=== PATIENT | male | born 1930 | race Caucasian/White ===

== ENCOUNTER 2016-07-16 10:36 | Observation (INO) | payer OTHER, BC ==
--- NOTE | 2016-07-16 12:38 | PDOC ---
History of Present Illness - General Chief Complaint: Pain Stated Complaint: NECK PAIN Time Seen by Provider: 07/16/16 11:54 History Source: Patient Exam Limitations: No Limitations - History of Present Illness Initial Comments: 07/16/16 12:38 CHIEF COMPLAINT: Headache HISTORY OF PRESENT ILLNESS: This is an 85 year old male with a history of Afib on Coumadin, HTN, and BPH who presented to the ED today complaining of headache. He reports that Sunday while sitting and reading at around noon, he experienced sudden, severe pain in the back of his head and neck ("like being hit in the head with a baseball bat"). He had dizziness at that time. His dizziness has since resolved, but the pain has persisted despite taking Excedrin. He denies fevers/chills, nausea/vomiting, change in speech, difficulty walking, numbness/weakness of the extremities, or any other symptoms. V/s on arrival are notable for P 92 and BP 145/93. PCP is Dr. Rankin ([place]) REVIEW OF SYSTEMS: GENERAL/CONSTITUTIONAL: No fever or chills. No weakness. No weight change. HEAD, EYES, EARS, NOSE AND THROAT: No change in vision. No ear pain or discharge. No sore throat. CARDIOVASCULAR: No chest pain or palpitations. RESPIRATORY: No cough, wheezing, or shortness of breath. GASTROINTESTINAL: No nausea, vomiting, diarrhea or constipation. GENITOURINARY: No dysuria, frequency, or change in urination. MUSCULOSKELETAL: Neck pain, worse with turning head to left. SKIN: No rash or easy bruising. NEUROLOGIC: See HPI. PSYCHIATRIC: No depression or anxiety. ENDOCRINE: No increased thirst. No abnormal weight change. HEMATOLOGIC/LYMPHATIC: No anemia, easy bleeding, or history of blood clots. ALLERGIC/IMMUNOLOGIC: No hives or skin allergy. No latex allergy. PHYSICAL EXAM: GENERAL: The patient is awake, alert, and fully oriented, in no acute distress. HEAD: Normal with no signs of trauma. ENT: Pupils equal, round and reactive to light, extraocular movements intact, sclera anicteric, conjunctiva clear. Neck supple. LUNGS: Clear to auscultation bilaterally. Normal excursion. No respiratory distress or use of accessory muscles. CV: Irregular rhythm, S1/S2, no MRG. Cap refill < 2 sec. ABDOMEN: Soft, non-distended, non-tender. EXTREMITIES: Normal range of motion, no edema. NEUROLOGICAL: Normal speech, normal gait. CN II-XII grossly intact. Neck pain, reproducible with turning head to left. No midline vertebral tenderness. PSYCH: Normal mood, normal affect. SKIN: Warm, dry, normal turgor, no rashes or lesions noted. NIH Stroke Scale - Last Known Well Date/Time & Onset Date Last Known Well: 07/14/16 Time Last Known Well: 12:00 - Initial Evaluation Level of consciousness: Alert Ask patient the month and their age: Answers both correctly Ask patient to open & close eyes; make fist and let go: Obeys both correctly Best gaze (horizontal eye movement): Normal Visual field testing: No visual field loss Facial paresis (Show teeth/raise eyebrows/close eyes tight): Normal symmetrical movement Motor Function: Left Arm: Normal Motor Function: Right Arm: Normal (extends arm 90 (or 45) degrees for 10 seconds without drift Motor Function: Left Leg: Normal (extends leg 30 degrees for 5 seconds without drift) Motor Function: Right Leg: Normal (extends leg 30 degrees for 5 seconds without drift) Limb Ataxia: No ataxia Sensory(Use pinprick test arms,legs,trunk,face/side to side): Normal Best language (Describe picture, name items, read sentences): No Aphasia Dysarthria (read several words): Normal articulation Extinction and Inattention: No abnormality - Total Score NIH Stroke Scale Score: 0 Past History - Past Medical History Allergies/Adverse Reactions: Allergies Allergy/AdvReac Type Severity Reaction Status Date / Time No Known Allergies Allergy Verified 07/16/16 10:44 Home Medications: Ambulatory Orders Metoprolol Succinate [Toprol XL -] 200 mg PO DAILY 09/01/15 Allopurinol 300 mg PO DAILY 12/03/15 Warfarin Na [Coumadin -] 4.5 mg PO DAILY@1800 12/03/15 Cardiac Disorders: Yes (A-FIB) HTN: Yes - Surgical History Orthopedic Surgery: Yes (RIGHT KNEE) - Psycho/Social/Smoking Cessation Hx Anxiety: No Suicidal Ideation: No Smoking History: Never smoked Have you smoked in the past 12 months: Yes Number of Cigarettes Smoked Daily: 3 Cigars Per Day: 3 Information on smoking cessation initiated: No 'Breaking Loose' booklet given: 12/03/15 Hx Alcohol Use: No Drug/Substance Use Hx: No Substance Use Type: None Hx Substance Use Treatment: No *Physical Exam - Vital Signs Last Vital Signs Temp Pulse Resp BP Pulse Ox 98 F 92 H 18 145/93 98 07/16/16 10:38 07/16/16 10:38 07/16/16 10:38 07/16/16 10:38 07/16/16 10:38 Heart Score/ECG Review - ECG Intrepretation Comment:: 07/16/16 13:50 Atrial fibrillation with rapid ventricular response at 116. Right bundle branch block. ED Treatment Course - LABORATORY CBC & Chemistry Diagram: 07/16/16 12:53 07/16/16 12:53 - RADIOLOGY Radiology Studies Ordered: Category Date Time Status HEAD CT WITHOUT CONTRAST [CT] Stat CT Scan 07/16/16 12:37 Ordered Medical Decision Making - Medical Decision Making 07/16/16 13:36 A/P: 85 year old male with posterior headache and neck pain. 1. EKG 2. Cardiac labs + INR 3. Head CT to screen for SAH 4. Reglan/Benadryl for symptomatic relief 5. Patient took his Toprol XL today; will give Metoprolol 5mg IVP for for rapid ventricular rate (116 on EKG) 6. Re-evaluate 07/16/16 16:28 CTH shows no acute intracranial process. LP is deferred because of near-therapeutic INR (1.95). Neurology is consulted. CTA head and neck were obtained and results are pending. Patient still has headache after Reglan/Benadryl; morphine given. 07/16/16 17:42 CTA head and neck are negative for oclussin, stenosis, dissection or aneurysm per Imaging service station cashier report. 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 Will give trial of Valium po. *DC/Admit/Observation/Transfer Diagnosis at time of Disposition: Occipital headache, Neck pain - Discharge Dispostion Admit: Yes - Referrals Referrals: Aliyah Rankin [Primary Care Provider] -
[2016-07-16] MEDS ORDERED: METOCLOPRAMIDE HCL INJECTION 10 MG/2 ML VIAL IVPB ONE (12:57)
[2016-07-16 13:02] LABS: BASOPHIL 1.3 % (0-2.0); EOSINOPHIL 1.5 % (0-4.5); MCHC 33.6 g/dl (32.0-35.9); MEAN CELL VOLUME 89.3 fl (80-96); MEAN PLT VOLUME 8.1 fl (7.5-11.1); NEUTROPHILS 71.1 % (42.8-82.8); PLATELET COUNT 210 K/MM3 (134-434); RDW 13.9 % (11.9-15.9); WHITE BLOOD COUNT 11.7 K/mm3 (4.0-10.0)
[2016-07-16] MEDS ORDERED: METOCLOPRAMIDE HCL INJECTION 10 MG/2 ML VIAL ONE (13:11)
[2016-07-16 13:14] LABS: INR 1.95 (0.82-1.09); PROTHROMBIN TIME (PATIENT) 21.8 SEC (9.98-11.88)
[2016-07-16 13:40] LABS: ALBUMIN 4.2 g/dl (3.4-5.0); ALK PHOS 93 U/L (45-117); ANION GAP 9 (8-16); BILIRUBIN,TOTAL 1.3 mg/dL (0.2-1.0); CALCIUM 8.9 mg/dL (8.5-10.1); CO2 29 mmol/L (21-32); CREATININE 1.1 mg/dL (0.7-1.3); GLUCOSE,RANDOM 89 mg/dL (74-106); SGOT/AST 20 U/L (15-37); SGPT/ALT 29 U/L (12-78); TOT PROT 7.4 g/dl (6.4-8.2)
[2016-07-16] MEDS ORDERED: morphine CARPU-JECT 2 MG/1 ML DISP.SYRIN IVPUSH ONE (13:58)
[2016-07-16] MEDS ORDERED: morphine CARPU-JECT 2 MG/1 ML DISP.SYRIN ONE (14:10)
--- NOTE | 2016-07-16 14:30 | PDOC ---
[id number] 98 07/16/16 10:38 07/16/16 10:38 07/16/16 10:38 07/16/16 10:38 07/16/16 10:38 Heart Score/ECG Review - ECG Impressions Comment:: 07/16/16 14:43 Twelve-lead EKG was performed and reviewed by me. Atrial fibrillation Rate of 116 Right bundle-branch block ED Treatment Course - LABORATORY CBC & Chemistry Diagram: 07/17/16 06:20 07/17/16 06:20 - ADDITIONAL ORDERS Additional order review: Laboratory Results 07/16/16 07/16/16 07/16/16 13:09 12:53 12:53 INR 1.95 H Sodium 138 Potassium 4.0 Chloride 100 Carbon Dioxide 29 Anion Gap 9 BUN 17 Creatinine 1.1 Creat Clearance w eGFR > 60 Random Glucose 89 D Calcium 8.9 Total Bilirubin 1.3 H D AST 20 D ALT 29 D Alkaline Phosphatase 93 Total Protein 7.4 Albumin 4.2 Blood Type O POSITIVE Antibody Screen Negative 07/16/16 12:53 RBC 5.49 MCV 89.3 MCHC 33.6 RDW 13.9 MPV 8.1 Neutrophils % 71.1 Lymphocytes % 16.5 Monocytes % 9.6 Eosinophils % 1.5 Basophils % 1.3 - Medications Given in the ED: ED Medications Discontinued Medications Generic Name Dose Route Start Last Admin Trade Name Earlq PRN Reason Stop Dose Admin Diphenhydramine HCl 12.5 mg 07/16/16 12:57 07/16/16 13:15 Benadryl Injection - IVPUSH 07/16/16 12:58 12.5 mg ONCE ONE Administration Metoclopramide HCl 10 mg 07/16/16 12:57 07/16/16 13:16 Reglan Injection - IVPB 07/16/16 12:58 10 mg ONCE ONE Administration Morphine Sulfate 2 mg 07/16/16 13:58 07/16/16 14:16 Morphine Injection - IVPUSH 07/16/16 13:59 2 mg ONCE ONE Administration Medical Decision Making - Medical Decision Making 07/16/16 14:20 85-year-old gentleman history of A. fib on Coumadin, hypertension, BPH presents with complaint of neck pain and headache, patient endorses a headache while he was reading on Sunday L is moderate however to worsen significantly when he was sleeping last night, endorsed pain with any movement of his neck. The patient endorsed at his pain originally began behind his left ear, but has eating to his other side. Patient denies any focal neurology complaints, nausea or vomiting. He is well-appearing, in no distress however he is visibly holding his neck straight. The patient has a negative Kernig's and Brudzinski. Concern for possible subarachnoid hemorrhage versus ICH as pt is on coumadin, i have a concern about LP due to iatragenic spinal epidral hematoma will obtain CTA to r/o anerysm *DC/Admit/Observation/Transfer Diagnosis at time of Disposition: Occipital headache, Neck pain - Discharge Dispostion Disposition: HOME Condition at time of disposition: Stable - Prescriptions
[2016-07-16] MEDS ORDERED: METOPROLOL SUCCINATE 200 MG TAB.SR.24H PO SCH (17:00)
[2016-07-16] MEDS ORDERED: METOPROLOL TARTRATE 5 MG/5 ML VIAL IVPUSH ONE (17:15)
--- NOTE | 2016-07-16 17:15 | HP ---
PCP: Aliyah Rankin CHIEF COMPLAINT: Neck pain HISTORY OF PRESENT ILLNESS: This is an 85-year-old man who comes to the ER today complaining of pain in the back of his neck. He points to the mid posterior part of his neck. The pain radiates up to the occipital area. It is worse when he turns his head to the left side and when he lies down. He has no fever, chills, photophobia, visual changes, slurred speech, facial weakness, nausea, change in mental status. The pain started suddenly on Friday 07/14 while he was sitting and reading. He says it felt as if someone had hit him in the back of his neck with a baseball bat. He initially had some mild dizziness but it has resolved. He has been taking Excedrin without relief. PAST MEDICAL HISTORY Hypertension Atrial fibrillation BPH Gout PAST SURGICAL HISTORY Right knee surgery Allergies No Known Allergies Allergy (Verified 07/16/16 10:44) HOME MEDICATIONS 3 Medication Instructions Recorded Metoprolol Succinate [Toprol XL -] 200 mg PO DAILY 09/01/15 Allopurinol 300 mg PO DAILY 12/03/15 Warfarin Na [Coumadin -] 4.5 mg PO DAILY@1800 12/03/15 Social History: Smoking: Smokes cigars Alcohol: Drinks Klood on Sunday Drugs: None Recent Travel: No Family History: Non-contributory REVIEW OF SYSTEMS CONSTITUTIONAL: Absent: fever, chills, diaphoresis, generalized weakness, malaise, loss of appetite, weight change HEENT: Absent: rhinorrhea, nasal congestion, throat pain, throat swelling, difficulty swallowing, mouth swelling, ear pain, eye pain, visual changes CARDIOVASCULAR: Absent: chest pain, syncope, palpitations, lightheadedness, peripheral edema RESPIRATORY: Absent: cough, shortness of breath, dyspnea with exertion, orthopnea, wheezing, stridor, hemoptysis GASTROINTESTINAL: Absent: abdominal pain, abdominal distension, nausea, vomiting , diarrhea, constipation, melena, hematochezia GENITOURINARY: Absent: dysuria, frequency, urgency, hesitancy, hematuria, flank pain MUSCULOSKELETAL: Present: neck pain. Absent: myalgia, arthralgia, joint swelling, back pain SKIN: Absent: rash, itching, pallor HEMATOLOGIC/IMMUNOLOGIC: Absent: easy bleeding, easy bruising, lymphadenopathy, frequent infections ENDOCRINE: Absent: unexplained weight gain, unexplained weight loss, heat intolerance, cold intolerance NEUROLOGIC: Absent: headache, focal weakness, paresthesias, dizziness, unsteady gait, seizure, mental status changes, bladder or bowel incontinence PSYCHIATRIC: Absent: anxiety, depression, suicidal or homicidal ideation, hallucinations. PHYSICAL EXAMINATION Vital Signs Period Temp Pulse Resp BP Sys/Alvarenga Pulse Ox Last 24 Hr 98 F 92 18 145/93 98 GENERAL: Awake, alert, and fully oriented, in no acute distress. HEAD: Normal with no signs of trauma. EYES: Pupils equal, round and reactive to light, extraocular movements intact, sclerae anicteric, conjunctivae clear. EARS, NOSE, THROAT: Ears normal, nares patent, oropharynx clear without exudates. Moist mucous membranes. NECK: Decreased rotation, supple without lymphadenopathy, JVD, or masses. LUNGS: Breath sounds equal, clear to auscultation bilaterally. No wheezes, and no crackles. No accessory muscle use. HEART: Irregularly irregular without murmur, rub or gallop. ABDOMEN: Soft, nontender, not distended, normoactive bowel sounds, no guarding, no rebound, no masses. No hepatomegaly or splenomegaly. MUSCULOSKELETAL: Normal range of motion at all joints. No bony deformities or tenderness. No CVA tenderness. UPPER EXTREMITIES: 2+ pulses, warm, well-perfused. No cyanosis. No clubbing. Cap refill <2 seconds. No peripheral edema. LOWER EXTREMITIES: 2+ pulses, warm, well-perfused. No calf tenderness. No peripheral edema. NEUROLOGICAL: Cranial nerves II-XII intact. Normal speech. Normal gait. PSYCHIATRIC: Cooperative. Good eye contact. Appropriate mood and affect. SKIN: Warm, dry, normal turgor, no rashes or lesions noted. Laboratory Results - last 24 hr 07/16/16 07/16/16 07/16/16 12:53 12:53 12:53 WBC 11.7 H RBC 5.49 Hgb 16.5 D Hct 49.0 MCV 89.3 MCHC 33.6 RDW 13.9 Plt Count 210 MPV 8.1 Neutrophils % 71.1 Lymphocytes % 16.5 Monocytes % 9.6 Eosinophils % 1.5 Basophils % 1.3 INR 1.95 H Sodium 138 Potassium 4.0 Chloride 100 Carbon Dioxide 29 Anion Gap 9 BUN 17 Creatinine 1.1 Creat Clearance w eGFR > 60 Random Glucose 89 D Calcium 8.9 Total Bilirubin 1.3 H D AST 20 D ALT 29 D Alkaline Phosphatase 93 Total Protein 7.4 Albumin 4.2 Blood Type Antibody Screen 07/16/16 13:09 WBC RBC Hgb Hct MCV MCHC RDW Plt Count MPV Neutrophils % Lymphocytes % Monocytes % Eosinophils % Basophils % INR Sodium Potassium Chloride Carbon Dioxide Anion Gap BUN Creatinine Creat Clearance w eGFR Random Glucose Calcium Total Bilirubin AST ALT Alkaline Phosphatase Total Protein Albumin Blood Type O POSITIVE Antibody Screen Negative Head CT: No hemorrhage, mass, infarct. Mild diffuse cerebral atrophy with sulcal widening and ventricular dilatation. Periventricular white matter ischemic changes. EKG: Atrial fibrillation, ventricular response 116, RBBB. ASSESSMENT/PLAN: This is an 85-year-old man with a history of HTN, afib, BPH and gout who presented to the ER with pain in the back of his neck x 2 days. He has decreased ROM of his neck. WBC is 11.7. He is afebrile. Head CT shows atrophy and chronic periventricular disease. He is being placed in observation for further evaluation and management of an emergent condition. 1. Neck pain - Likely musculoskeletal - Flexeril as needed - CTA of neck and brain pending 2. Permanent atrial fibrillation - Continue Toprol XL, Coumadin 3. Hypertension - Continue Toprol XL 4. BPH 5. History of gout - Continue Allopurinol Visit type - Emergency Visit Emergency Visit: Yes Care time: The patient presented to the Emergency Department on the above date and was hospitalized for further evaluation of their emergent condition. - New Patient This patient is new to me today: Yes Date on this admission: 07/16/16 - Critical Care Critical Care patient: No
[2016-07-16] MEDS ORDERED: ONDANSETRON 4 MG/2 ML VIAL IVPB PRN (17:23)
[2016-07-16] MEDS ORDERED: diazePAM 5 MG TABLET PO ONE (17:43)
[2016-07-16] MEDS ORDERED: METOPROLOL TARTRATE 5 MG/5 ML VIAL ONE (17:55)
[2016-07-16] MEDS ORDERED: diazePAM 5 MG TABLET ONE (17:55)
[2016-07-16] MEDS: WARFARIN NA 3 MG TABLET PO SCH (19:06)
[2016-07-16 20:26] VITALS: BMI 26.2
[2016-07-16] MEDS: ACETAMINOPHEN 325 MG TABLET (FP) PO PRN (20:31)
[2016-07-16] MEDS: CYCLOBENZAPRINE HCL 10 MG TABLET (FP) PO PRN (22:15)
--- NOTE | 2016-07-16 23:19 | EKG ---
Test Reason : Blood Pressure : / mmHG Vent. Rate : 116 BPM Atrial Rate : 117 BPM P-R Int : 000 ms QRS Dur : 142 ms QT Int : 324 ms P-R-T Axes : 000 105 -03 degrees QTc Int : 450 ms ATRIAL FIBRILLATION WITH RAPID VENTRICULAR RESPONSE RIGHT BUNDLE BRANCH BLOCK ABNORMAL ECG WHEN COMPARED WITH ECG OF 03-DEC-2015 11:38, NO SIGNIFICANT CHANGE WAS FOUND Confirmed by FELI BARRERA MD ([id number]) on 07/16/2016 11:18:52 PM Referred By: Confirmed By:FELI BARRERA MD
[2016-07-17 07:37] LABS: BASOPHIL 0.4 % (0-2.0); EOSINOPHIL 3.2 % (0-4.5); MCH 30.8 pg (25.7-33.7); MCHC 34.6 g/dl (32.0-35.9); MEAN PLT VOLUME 8.3 fl (7.5-11.1); PLATELET COUNT 180 K/MM3 (134-434); RDW 13.7 % (11.9-15.9); WHITE BLOOD COUNT 7.8 K/mm3 (4.0-10.0)
[2016-07-17 08:13] LABS: INR 1.92 (0.82-1.09); PROTHROMBIN TIME (PATIENT) 21.4 SEC (9.98-11.88)
[2016-07-17 08:28] LABS: CALCIUM 8.5 mg/dL (8.5-10.1)
[2016-07-17] MEDS ORDERED: METOPROLOL SUCCINATE 200 MG TAB.SR.24H PO SCH (10:00)
[2016-07-17] MEDS ORDERED: PT OWN MED DRAWER 7, Y5N ONE (10:16)
[2016-07-17] MEDS ORDERED: METOPROLOL SUCCINATE 100 MG TAB.SR.24H (FP) PO ONE (10:18)
[2016-07-17] MEDS: ALLOPURINOL 300 MG TABLET (FP) PO SCH (10:27)
[2016-07-17] MEDS: CYCLOBENZAPRINE HCL 10 MG TABLET (FP) PO PRN ×2 (10:33→17:34)
--- NOTE | 2016-07-17 10:58 | PN ---
Physical Exam: SUBJECTIVE: Patient seen and examined. He feels some pain starting now, neck pain improved from admission, still having difficulty with rotation/flexion and extension. OBJECTIVE: Vital Signs Period Temp Pulse Resp BP Sys/Alvarenga Pulse Ox Last 24 Hr 97.4 F-98.0 F 76-106 18-20 114-183/48-108 97-100 PE Neuro: alert, awake, cn 2-12intact HEENT: neck stiffness R>L, pain at rest and with turning, originates on right and refers to left, - brudzinski sign, 15 degrees flexion 20 degrees extension Pulm: CTAB CV: s1 s2 irregular rhythm no mrg Abd: s nt nd + bs Ext: warm, dry turgor, no edema Laboratory Results - last 24 hr 07/17/16 07/17/16 07/17/16 06:20 06:20 06:20 WBC 7.8 D RBC 4.55 Hgb 14.0 D Hct 40.5 D MCV 89.0 MCHC 34.6 RDW 13.7 Plt Count 180 MPV 8.3 Neutrophils % 62.0 Lymphocytes % 24.1 D Monocytes % 10.3 H Eosinophils % 3.2 D Basophils % 0.4 INR 1.92 H Sodium 139 Potassium 3.9 Chloride 103 Carbon Dioxide 26 Anion Gap 10 BUN 16 Creatinine 1.0 Random Glucose 82 Calcium 8.5 Active Medications Generic Name Dose Route Start Last Admin Trade Name Freq PRN Reason Stop Dose Admin Acetaminophen 650 mg 07/16/16 17:16 07/16/16 20:31 Tylenol - PO 650 mg Q4H PRN Administration FEVER OR PAIN Allopurinol 300 mg 07/17/16 10:00 07/17/16 10:27 Zyloprim - PO Not Given DAILY KATHY Cyclobenzaprine HCl 5 mg 07/16/16 17:27 07/17/16 10:33 Flexeril - PO 5 mg TID PRN Administration MUSCLE SPASMS Metoprolol Succinate 200 mg 07/17/16 10:00 07/17/16 10:27 Toprol Xl - PO 200 mg DAILY KATHY Administration Ondansetron HCl 4 mg 07/16/16 17:23 Zofran Injection IVPB Q4H PRN NAUSEA Warfarin Sodium 4.5 mg 07/16/16 18:00 07/16/16 19:06 Coumadin - PO 4.5 mg DAILY@1800 KATHY Administration Imaging: Head CT: No hemorrhage, mass, infarct. Mild diffuse cerebral atrophy with sulcal widening and ventricular dilatation. Periventricular white matter ischemic changes. Assessment: 85 year old male with pmhx of HTN, afib, BPH and gout admitted with posterior neck pain x 2 days with decreased ROM. Plan: 1. Neck pain - ?possible musculoskeletal vs nerve impingement - Flexeril as needed - CTA of neck and brain done, report pending - Neuro following awaiting input 2. Permanent atrial fibrillation - Continue Toprol XL - Continue Coumadin 4.5mg HS - Daily INR 3. Hypertension - Continue Toprol XL 4. History of gout - Continue Allopurinol Visit type - Emergency Visit Emergency Visit: Yes ED Registration Date: 07/16/16 Care time: The patient presented to the Emergency Department on the above date and was hospitalized for further evaluation of their emergent condition. - New Patient This patient is new to me today: Yes Date on this admission: 07/17/16 - Critical Care Critical Care patient: No
--- NOTE | 2016-07-17 12:34 | CONSULT ---
Consult Consult Specialty:: Neurology Reason for Consultation:: Neck pain - History of Present Illness History of Present Illness: 85-year-old man with history of afib and hypertension, presents to hospital with complaints of neck pain. He describes the pain as posterior, worse when he turns his head to the left side and when he lies down. The patient was seen in ED and denied fever, chills, photophobia, visual changes, slurred speech, facial weakness, nausea, change in mental status. He underwent CT head which showed no significant acute pathology. CTA head and neck was also complete with results pending at this time. This AM patient reports mild improvement in symptoms but continues to experience neck pain - History Source History Provided By: Patient - Past Medical History Cardio/Vascular: Yes: AFIB, HTN Renal/: Yes: BPH. No: Renal Failure, Renal Inusuff, Cancer, Hematuria, Hemodialysis, Neurogenic Bladder, Renal Calculi, UTI, Other - Alcohol/Substance Use Hx Alcohol Use: No - Smoking History Smoking history: Never smoked Have you smoked in the past 12 months: Yes Aproximately how many cigarettes per day: 3 Home Medications - Allergies Allergies/Adverse Reactions: Allergies Allergy/AdvReac Type Severity Reaction Status Date / Time No Known Allergies Allergy Verified 07/16/16 10:44 - Home Medications Home Medications: Ambulatory Orders Metoprolol Succinate [Toprol XL -] 200 mg PO DAILY 09/01/15 Allopurinol 300 mg PO DAILY 12/03/15 Warfarin Na [Coumadin -] 4.5 mg PO DAILY@1800 12/03/15 Review of Systems - Review of Systems Constitutional: reports: No Symptoms Eyes: reports: No Symptoms HENT: reports: No Symptoms Neck: reports: Stiffness Cardiovascular: reports: No Symptoms Respiratory: reports: No Symptoms Gastrointestinal: reports: No Symptoms Genitourinary: reports: No Symptoms Musculoskeletal: reports: Back Pain Neurological: reports: No Symptoms Physical Exam Vital Signs: Vital Signs Temperature 98.1 F 07/17/16 10:00 Pulse Rate 77 07/17/16 10:00 Respiratory Rate 20 07/17/16 10:00 Blood Pressure 106/61 07/17/16 10:00 O2 Sat by Pulse Oximetry (%) 97 07/16/16 20:10 Constitutional: Yes: Well Nourished Eyes: Yes: WNL HENT: Yes: Atraumatic, Normocephalic Neck: Yes: Other (complains of neck pain) Respiratory: Yes: Regular Extremities: Yes: WNL Neurological: Yes: Alert, Oriented, Cran Nerves II-XII Intact ...Motor Strength: WNL Labs: CBC, BMP 07/17/16 06:20 07/17/16 06:20 Assessment/Plan 85-year-old man with history of afib and hypertension, presents to hospital with complaints of neck pain. He describes the pain as posterior, worse when he turns his head to the left side and when he lies down. The patient was seen in ED and denied fever, chills, photophobia, visual changes, slurred speech, facial weakness, nausea, change in mental status. He underwent CT head which showed no significant acute pathology. CTA head and neck was also complete with results pending at this time. This AM patient reports mild improvement in symptoms but continues to experience neck pain Examination non focal ?musculoskeletal pain, cervicalgia CTA head and neck report pending Based on results of above will consider MRI C spine Will follow
[2016-07-17] MEDS ORDERED: diazePAM 5 MG TABLET PO ONE (14:45)
[2016-07-17] MEDS ORDERED: NAPROXEN 500 MG TABLET (FP) PO ONE (15:00)
[2016-07-17] MEDS: WARFARIN NA 3 MG TABLET PO SCH (17:23)
[2016-07-17] MEDS: ACETAMINOPHEN 325 MG TABLET (FP) PO PRN (22:19)
[2016-07-18] MEDS: CYCLOBENZAPRINE HCL 10 MG TABLET (FP) PO PRN (06:42)
[2016-07-18 07:51] LABS: INR 1.91 (0.82-1.09); PROTHROMBIN TIME (PATIENT) 21.3 SEC (9.98-11.88)
[2016-07-18] MEDS ORDERED: METOPROLOL SUCCINATE 100 MG TAB.SR.24H (FP) PO SCH (10:00)
[2016-07-18] MEDS: ALLOPURINOL 300 MG TABLET (FP) PO SCH (10:02)
[2016-07-18 13:55] VITALS: BP 140/86; PULSE 79; TEMP 97.4
--- NOTE | 2016-07-18 14:58 | DS ---
Physical Exam: SUBJECTIVE: Patient seen and examined. He states he is feeling much better, his pain is resolved. OBJECTIVE: Vital Signs Period Temp Pulse Resp BP Sys/[place] Pulse Ox Last 24 Hr 97.3 F-97.9 F 66-90 18-18 104-140/58-86 97-98 PE Neuro: alert, awake, cn 2-12intact HEENT: neck stiffness improved, rotation improved without tenderness >30 degrees Pulm: CTAB CV: s1 s2 irregular rhythm no mrg Abd: s nt nd + bs Ext: warm, dry turgor, no edema Laboratory Results - last 24 hr 07/18/16 07:00 INR 1.91 H HOSPITAL COURSE: Date of Admission:07/16/16 Date of Discharge: 07/18/16 Minutes to complete discharge: 35 Discharge Summary Reason For Visit: NECK PAIN/OCCIPIAL HEADACHE Current Active Problems Neck pain (Acute) Occipital headache (Acute) BPH (benign prostatic hypertrophy) (Chronic) Gout (Chronic) Hypertension (Chronic) Permanent atrial fibrillation (Chronic) Hospital Course: Initial Hospital Course: Briefly, this 85 year old man admitted complaining of pain in the back of his neck, to the mid posterior part of his neck. The pain radiated up to the occipital area. It is worse when he turned his head to the left side and when he lies down. He has no fever, chills, photophobia, visual changes, slurred speech, facial weakness, nausea, change in mental status. The pain started suddenly on Friday 07/14 while he was sitting and reading. He says it felt as if someone had hit him in the back of his neck with a baseball bat. He initially had some mild dizziness but it has resolved. He has been taking Excedrin without relief. Imaging: Head CT: No hemorrhage, mass, infarct. Mild diffuse cerebral atrophy with sulcal widening and ventricular dilatation. Periventricular white matter ischemic changes. Subsequent Hospital Course/Progress Note/Discharge Summary Assessment: 85 year old male with pmhx of HTN, afib, BPH and gout admitted with posterior neck pain x 2 days with decreased ROM. Plan: 1. Neck pain - ?possible musculoskeletal vs nerve impingement - CTA of neck and brain, tiny plaque origin of right external carotid artery no stenosis - Flexeril 5mg daily x 5 days - D/w Neuro, can follow up as needed 2. Permanent atrial fibrillation - Continue Toprol XL - Continue Coumadin 4.5mg HS with weekly INR checks 3. Hypertension - Continue Toprol XL 4. History of gout - Continue Allopurinol Dispo: - Home with above meds, pcp follow up - Pt aware and agrees to above plan Condition: Stable - Instructions Diet, Activity, Other Instructions: Please return to the ED for any new, persistent, or worsening symptoms. Follow up with your PCP in 1 week For further neck issues Neurology referral enclosed Take flexeril for next 5 days Check INR in 2 days Continue home meds as directed Referrals: Grover Goldman MD [Staff Physician] - Aliyah Rankin [Primary Care Provider] - 1 Week (Dr. Rankin ([place])) Disposition: HOME - Home Medications Comprehensive Discharge Medication List: Ambulatory Orders Metoprolol Succinate [Toprol XL -] 200 mg PO DAILY 09/01/15 Allopurinol 300 mg PO DAILY 12/03/15 Warfarin Na [Coumadin -] 4.5 mg PO DAILY@1800 12/03/15 Cyclobenzaprine HCl [Flexeril -] 5 mg PO DAILY #5 tablet 07/18/16 This patient is new to me today: No Emergency Visit: Yes ED Registration Date: 07/16/16 Care time: The patient presented to the Emergency Department on the above date and was hospitalized for further evaluation of their emergent condition. Critical Care patient: No - Discharge Referral Referred to [facility] No
== END 2016-07-18 16:21 | disposition home or self-care (01) ==
LOC: JER 10:36 → JERFT 10:36 → JERBED 17:05 → J7W 20:04
PROVIDERS: ADMIT Internal Medicine; ATTEND Nurse Practitioner Acute Care
DX: M54.2 Cervicalgia (principal); R51 Headache; I48.2 Chronic atrial fibrillation; Z79.01 Long term (current) use of anticoagulants; I10 Essential (primary) hypertension; M10.9 Gout, unspecified; N40.0 Benign prostatic hyperplasia without lower urinary tract symptoms; I45.10 Unspecified right bundle-branch block
CPT/HCPCS: 36415; 70450-TC; 70496-TC; 70498-TC; 80048; 80053; 85025; 85610; 86850; 86900; 86901; 93005; 93010; 99283-25; 99284-25; G0378

== ENCOUNTER 2017-07-28 14:23 | Emergency (ER) | payer OTHER, BC ==
[2017-07-28 14:37] VITALS: BP 121/105; PULSE 119; TEMP 98.5; BMI 26.5
--- NOTE | 2017-07-28 15:38 | PDOC ---
Attending Attestation - Resident Resident Name: Di Perez - HPI HPI: 07/29/17 08:15 pt presents to the ED with pain and swelling to his knee after twisting injury 5 days ago. Patient has been able to ambulate on affected knee, but pain has been persistent, so he presented to the ED. - Physicial Exam PE: 07/29/17 08:16 Agree with resident exam. Patient is able to actively flex his knee ( with some discomfort) to approximately 90 degrees. No erythema. No tenderness over the tibial plateau. 07/29/17 08:17 - Medical Decision Making 07/29/17 08:35 Pt presents to the ED with pain and tenderness after twisting movement of the knee. HIstory of a fib on coumadin. Will check labs and reverse INR if supratherapuetic. Will check xray to rule out occult fracture.
--- NOTE | 2017-07-28 15:44 | PDOC ---
History of Present Illness - General Chief Complaint: Injury Stated Complaint: FALL/INJURY Time Seen by Provider: 07/28/17 15:21 - History of Present Illness Initial Comments: 86 year old male with a history of Afib on Coumadin, HTN, gout, right ACL tear (s/p repair 50 years prior) and BPH presenting with right knee pain and limited mobility that has progressively worsened since a mechanical trip and fall two [place]. States that he tripped over his shoelaces on a carpeted floor and fell backwards landing on his gluteus with his back against a padded chair. His female friend at bedside states that she helped him up and he was able to ambulate that and Sunday with little pain and stiffness. He also drove back from [place] to [place] without difficulty. Last night he went to bed with only minor stiffness and pain for which he took ibuprofen with effective relief. He woke up this AM with significant swelling, stiffness, and sharp pain around his entire knee. The pain is exacerbated with weight bearing. He denies, rash, fever, cough, sob, nausea, vomiting, diarrhea, chest pain, sick contacts, or other recent illness. His PCP is Aliyah Rankin. 07/28/17 15:55 Past History - Past Medical History Allergies/Adverse Reactions: Allergies Allergy/AdvReac Type Severity Reaction Status Date / Time No Known Allergies Allergy Verified 07/28/17 14:33 Home Medications: Ambulatory Orders Metoprolol Succinate [Toprol XL -] 200 mg PO DAILY 09/01/15 Allopurinol 300 mg PO DAILY 12/03/15 Warfarin Na [Coumadin -] 4.5 mg PO DAILY@1800 12/03/15 Cyclobenzaprine HCl [Flexeril -] 5 mg PO DAILY #5 tablet 07/18/16 Cardiac Disorders: Yes (A-FIB) COPD: No HTN: Yes - Surgical History Orthopedic Surgery: Yes (RIGHT KNEE) - Immunization History Immunization Up to Date: Yes - Suicide/Smoking/Psychosocial Hx Smoking History: Never smoked Have you smoked in the past 12 months: Yes Number of Cigarettes Smoked Daily: 3 Cigars Per Day: 3 Information on smoking cessation initiated: No 'Breaking Loose' booklet given: 12/03/15 Hx Alcohol Use: No Drug/Substance Use Hx: No Substance Use Type: None Hx Substance Use Treatment: No Review of Systems - Review of Systems Constitutional: No: Chills, Diaphoresis, Fever HEENTM: No: Blurred Vision, Recent change in vision Respiratory: No: Cough, Shortness of Breath, Wheezing Cardiac (ROS): No: Chest Pain, Irregular Heart Rate, Lightheadedness, Palpitations ABD/GI: No: Diarrhea, Nausea, Vomiting : No: Dysuria, Discharge Musculoskeletal: Yes: Joint Pain, Joint Swelling. No: Back Pain Integumentary: No: Bruising, Erythema, Lesions Neurological: No: Headache, Numbness, Tingling *Physical Exam - Vital Signs Last Vital Signs Temp Pulse Resp BP Pulse Ox 98.5 F 119 H 17 121/105 98 07/28/17 14:33 07/28/17 14:33 07/28/17 14:33 07/28/17 14:33 07/28/17 14:33 - Physical Exam General Appearance: Yes: Nourished, Appropriately Dressed. No: Apparent Distress HEENT: positive: EOMI, DEMETRIS, Normal Voice Neck: positive: Trachea midline, Normal Thyroid, Supple. negative: Tender, Rigid Respiratory/Chest: positive: Lungs Clear, Normal Breath Sounds. negative: Chest Tender, Respiratory Distress, Accessory Muscle Use Cardiovascular: positive: Regular Rate, Irregularly Irregular Gastrointestinal/Abdominal: positive: Normal Bowel Sounds, Flat, Soft. negative : Tender Musculoskeletal: positive: Decreased Range of Motion (Right knee significantly swollen with noticeable generalized and popliteal edema. Limited ROM with flexion to 110 degrees and extension to 160 degreees). negative: Normal Inspection Extremity: positive: Normal Capillary Refill, Tender (TTP around right knee). negative: Normal Inspection, Normal Range of Motion (Per above) Integumentary: positive: Normal Color, Dry Neurologic: positive: Fully Oriented, Alert, Normal Mood/Affect, Normal Response , Motor Strength 5/5 ED Treatment Course - LABORATORY CBC & Chemistry Diagram: 07/28/17 16:20 07/28/17 16:20 Medical Decision Making - Medical Decision Making 86 year old male with mechanical trip and fall without LOC or head trauma with likely ligamentous injury given that he was able to ambulate for over a day after the injury but lost the ability to bear weight after significant swelling has accumulated around his knee. Not likely a fracture. The fluid could be a hematoma given his Coumadin usage. 07/28/17 16:11 Knee Xray negative for fracture. PT/INR and basic labs pending. Likely soft tissue injury/ ligamentous injury. 07/28/17 16:35 INR slightly supratherapeutic but not high enough to consider reversal. Will DC with immobilizer, crutches, and compartment syndrome precautions. 07/28/17 17:37 *DC/Admit/Observation/Transfer Diagnosis at time of Disposition: Knee injury Qualifiers: Encounter type: initial encounter Laterality: right Qualified Code(s): S89.91XA - Unspecified injury of right lower leg, initial encounter - Discharge Dispostion Disposition: HOME Condition at time of disposition: Improved Admit: No - Referrals Referrals: Aliyah Rankin [Primary Care Provider] - Juanito Guido MD [Staff Physician] - - Patient Instructions Printed Discharge Instructions: DI for Knee Effusion Additional Instructions: Your xray did not show any fracture. Please use your knee immoboilizer if it helps you get aroudn with your crutches, Please follow up with orthopedics on sunday (Dr. Guido). Please use Tylenol and Motrin for pain. If you get numbness, tingling, coolness, or pain below your knee please return to the ED. - Post Discharge Activity
[2017-07-28 16:46] LABS: BASO % 0.3 % (0-2.0); EOS % 0.1 % (0-4.5); HEMATOCRIT 43.8 % (35.4-49); HEMOGLOBIN 14.5 GM/dL (11.7-16.9); LYMPH % 8.4 % (8-40); MCH 30.3 pg (25.7-33.7); MCHC 33.2 g/dl (32.0-35.9); MEAN CELL VOLUME 91.5 fl (80-96); MEAN PLT VOLUME 8.5 fl (7.5-11.1); MONO % 9.5 % (3.8-10.2); NEUT % 81.7 % (42.8-82.8); PLATELET COUNT 199 K/MM3 (134-434); RBC 4.79 M/mm3 (4.00-5.60); RDW 14.2 % (11.9-15.9); WHITE BLOOD COUNT 9.7 K/mm3 (4.0-10.0)
[2017-07-28 17:09] LABS: ALBUMIN 3.4 g/dl (3.4-5.0); ANION GAP 5 (8-16); BILIRUBIN,TOTAL 1.1 mg/dL (0.2-1.0); BLOOD UREA NITROGEN 17 mg/dL (7-18); CALCIUM 7.8 mg/dL (8.5-10.1); CHLORIDE 108 mmol/L (98-107); CO2 27 mmol/L (21-32); CREATININE 1.1 mg/dL (0.7-1.3); GLUCOSE,RANDOM 197 mg/dL (74-106); POTASSIUM 4.3 mmol/L (3.5-5.1); SGOT/AST 15 U/L (15-37); SGPT/ALT 28 U/L (12-78); SODIUM 140 mmol/L (136-145); TOT PROT 6.2 g/dl (6.4-8.2)
[2017-07-28 17:10] LABS: ALK PHOS 75 U/L (45-117)
[2017-07-28 17:14] LABS: INR 3.17 (0.82-1.09); PROTHROMBIN TIME (PATIENT) 35.8 SEC (9.98-11.88)
== END 2017-07-28 18:35 | disposition home or self-care (01) ==
LOC: JER 14:23 → JERFT 14:23 → JER 18:35
DX: S89.81XA Other specified injuries of right lower leg, initial encounter (principal); W18.09XA Striking against other object with subsequent fall, initial encounter; Y93.89 Activity, other specified; Y92.59 Other trade areas as the place of occurrence of the external cause; Y99.8 Other external cause status; I10 Essential (primary) hypertension; I48.91 Unspecified atrial fibrillation; Z79.01 Long term (current) use of anticoagulants
CPT/HCPCS: 36415; 73564-TC-RT; 80053; 85025; 85610; 99282-25